=== PATIENT | female | born 1945 | race Caucasian/White ===

== ENCOUNTER 2017-05-28 11:16 | Inpatient (IN) | payer MEDICARE, OTHER ==
[~2017-05-28] VITALS: Ht 175.3 cm; Wt 85.2 kg
[~2017-05-28 11:16] MED LIST: ALBU90OI INH; CLOB.05TC TOP; Duoneb 2.5-0.5 M3 ML INH; ESTR2; FLUSAL2505 INH; GLUC500 PO; LOVA40 PO; Lialda1.2 GM PO; MAGNESIUM 250 MG PO; NITR100CA PO; Omeprazole20 M1; Prednisone20 MG PO; TIOT18 INH; WARF5 PO
[2017-05-28] MEDS ORDERED: AMLO10 PO (11:54)
[2017-05-28] MEDS ORDERED: METO25ER PO (11:54)
[2017-05-28] MEDS ORDERED: VALSARTAN160 MG PO (11:54)
[2017-05-28] MEDS ORDERED: AZIT250 PO (11:55)
[2017-05-28 11:56] LABS: BASOPHILS ABSOLUTE AUTO 0.02 K/mm3 (0.00-0.23); BASOPHILS PERCENT AUTO 0 % (0-2); EOSINOPHILS ABSOLUTE AUTO 0.13 K/mm3 (0.00-0.68); EOSINOPHILS PERCENT AUTO 1 % (0-6); Hematocrit 40.6 % (33.0-51.0); Hemoglobin 13.3 g/dL (11.5-16.0); IMMATURE GRAN ABSOLUTE AUTO 0.03 K/mm3 (0.00-0.10); IMMATURE GRAN PERCENT AUTO 0 % (0-1); LYMPHOCYTES ABSOLUTE AUTO 1.58 K/mm3 (0.84-5.20); LYMPHOCYTES PERCENT AUTO 16 % (21-46); MONOCYTES ABSOLUTE AUTO 0.71 K/mm3 (0.16-1.47); MONOCYTES PERCENT AUTO 7 % (4-13); Mean Corpuscular HGB 29.8 pg (26.0-34.0); Mean Corpuscular HGB Conc 32.8 g/dL (31.5-36.5); Mean Corpuscular Volume 91 fL (80-100); Mean Platelet Volume 9.5 fL (9.1-12.4); NEUTROPHILS ABSOLUTE AUTO 7.43 K/mm3 (1.96-9.15); NEUTROPHILS PERCENT AUTO 75 % (41-73); Platelet Count 309 K/mm3 (150-400); RDW Standard Deviation 45.9 fL (35.1-46.3); Red Blood Cell Count 4.47 M/mm3 (3.80-5.20)
[2017-05-28 12:07] LABS: International Normalized Ratio 2.53; Prothrombin Time Results 27.1 Sec (9.7-11.5)
[2017-05-28 12:16] LABS: Alanine Aminotransfer (ALT/SGP 17 U/L (12-78); Albumin/Globulin Ratio 0.7 (0.8-1.8); Alk Phos 84 U/L (50-136); Anion Gap 10 mmol/L (6-16); Aspartate Aminotrans (AST/SGOT 26 U/L (12-37); Bilirubin, Total 0.5 mg/dL (0.1-1.0); Blood Urea Nitrogen 13 mg/dL (8-24); Bun/Creatinine Ratio 18.5 (12.0-20.0); CO2, Blood 25 mmol/L (21-32); Calcium, Blood 9.2 mg/dL (8.5-10.1); Chloride, Blood 103 mmol/L (98-108); Globulin, Blood 4.6 g/dL (2.2-4.0); Glomerular Filtration Rate >60 (60-); Glucose, Blood 94 mg/dL (70-99); Potassium, Blood 3.4 mmol/L (3.5-5.5); Sodium, Blood 138 mmol/L (136-145); Total Protein, Blood 7.6 g/dL (6.4-8.2)
[2017-05-28] MEDS ORDERED: TIOT18 INH (12:23)
[2017-05-28] MEDS ORDERED: Ferrous Sulfat325 M2 PO (12:24)
[2017-05-28] MEDS ORDERED: Balsalazide Di750 MG PO (12:24)
[2017-05-28 13:39] LABS: Influenza A Negative (NEGATIVE); Influenza B Negative (NEGATIVE)
[2017-05-28] MEDS ORDERED: WARF4 PO (16:56)
[2017-05-29 06:01] LABS: BASOPHILS PERCENT AUTO 0 % (0-2); EOSINOPHILS PERCENT AUTO 0 % (0-6); Hematocrit 37.6 % (33.0-51.0); Hemoglobin 12.2 g/dL (11.5-16.0); IMMATURE GRAN ABSOLUTE AUTO 0.02 K/mm3 (0.00-0.10); IMMATURE GRAN PERCENT AUTO 0 % (0-1); LYMPHOCYTES ABSOLUTE AUTO 0.54 K/mm3 (0.84-5.20); LYMPHOCYTES PERCENT AUTO 7 % (21-46); MONOCYTES ABSOLUTE AUTO 0.07 K/mm3 (0.16-1.47); MONOCYTES PERCENT AUTO 1 % (4-13); Mean Corpuscular HGB 29.7 pg (26.0-34.0); Mean Corpuscular HGB Conc 32.4 g/dL (31.5-36.5); Mean Corpuscular Volume 92 fL (80-100); Mean Platelet Volume 10.1 fL (9.1-12.4); NEUTROPHILS ABSOLUTE AUTO 6.95 K/mm3 (1.96-9.15); NEUTROPHILS PERCENT AUTO 92 % (41-73); Platelet Count 297 K/mm3 (150-400); RDW Coefficient Variation 13.8 % (11.7-14.2); Red Blood Cell Count 4.11 M/mm3 (3.80-5.20); White Blood Cell Count 7.58 K/mm3 (4.00-11.30)
[2017-05-29 06:18] LABS: International Normalized Ratio 3.57; Prothrombin Time Results 38.6 Sec (9.7-11.5)
[2017-05-29 06:32] LABS: Alanine Aminotransfer (ALT/SGP 15 U/L (12-78); Albumin, Blood 2.7 g/dL (3.4-5.0); Albumin/Globulin Ratio 0.6 (0.8-1.8); Alk Phos 79 U/L (50-136); Anion Gap 8 mmol/L (6-16); Aspartate Aminotrans (AST/SGOT 21 U/L (12-37); Bilirubin, Total 0.3 mg/dL (0.1-1.0); Blood Urea Nitrogen 11 mg/dL (8-24); Bun/Creatinine Ratio 18.3 (12.0-20.0); CO2, Blood 26 mmol/L (21-32); Calcium, Blood 8.9 mg/dL (8.5-10.1); Chloride, Blood 103 mmol/L (98-108); Globulin, Blood 4.2 g/dL (2.2-4.0); Glomerular Filtration Rate >60 (60-); Glucose, Blood 192 mg/dL (70-99); Sodium, Blood 137 mmol/L (136-145); Total Protein, Blood 6.9 g/dL (6.4-8.2)
[2017-05-30 05:27] LABS: International Normalized Ratio 3.6; Prothrombin Time Results 38.9 Sec (9.7-11.5)
[2017-05-31 05:17] LABS: International Normalized Ratio 3.41; Prothrombin Time Results 36.8 Sec (9.7-11.5)
[2017-05-31 10:42] LABS: BASOPHILS ABSOLUTE AUTO 0.01 K/mm3 (0.00-0.23); BASOPHILS PERCENT AUTO 0 % (0-2); EOSINOPHILS PERCENT AUTO 0 % (0-6); Hematocrit 38.6 % (33.0-51.0); Hemoglobin 12.7 g/dL (11.5-16.0); IMMATURE GRAN PERCENT AUTO 3 % (0-1); LYMPHOCYTES ABSOLUTE AUTO 0.97 K/mm3 (0.84-5.20); LYMPHOCYTES PERCENT AUTO 8 % (21-46); MONOCYTES ABSOLUTE AUTO 0.33 K/mm3 (0.16-1.47); MONOCYTES PERCENT AUTO 3 % (4-13); Mean Corpuscular HGB 29.9 pg (26.0-34.0); Mean Corpuscular HGB Conc 32.9 g/dL (31.5-36.5); Mean Corpuscular Volume 91 fL (80-100); Mean Platelet Volume 9.7 fL (9.1-12.4); NEUTROPHILS ABSOLUTE AUTO 10.24 K/mm3 (1.96-9.15); NEUTROPHILS PERCENT AUTO 86 % (41-73); Platelet Count 365 K/mm3 (150-400); RDW Coefficient Variation 13.6 % (11.7-14.2); RDW Standard Deviation 44.9 fL (35.1-46.3); Red Blood Cell Count 4.25 M/mm3 (3.80-5.20); White Blood Cell Count 11.95 K/mm3 (4.00-11.30)
[2017-05-31 11:06] LABS: Anion Gap 9 mmol/L (6-16); Blood Urea Nitrogen 17 mg/dL (8-24); Bun/Creatinine Ratio 29.3 (12.0-20.0); CO2, Blood 27 mmol/L (21-32); Calcium, Blood 8.3 mg/dL (8.5-10.1); Chloride, Blood 104 mmol/L (98-108); Creatinine, Blood 0.58 mg/dL (0.40-1.00); Glomerular Filtration Rate >60 (60-); Glucose, Blood 207 mg/dL (70-99); Potassium, Blood 3.7 mmol/L (3.5-5.5); Sodium, Blood 140 mmol/L (136-145)
[2017-06-01 05:36] LABS: International Normalized Ratio 2.65; Prothrombin Time Results 28.4 Sec (9.7-11.5)
[2017-06-02 05:36] LABS: International Normalized Ratio 1.91; Prothrombin Time Results 20.3 Sec (9.7-11.5)
[2017-06-02] MEDS ORDERED: WARF4 PO (14:42)
[2017-06-02] MEDS ORDERED: LEVFLO500 PO (14:43)
[2017-06-02] MEDS ORDERED: PRED10 (14:47)
== END 2017-06-02 15:58 | disposition home or self-care (01) | DRG 189 ==
LOC: ER 11:16 → MEDS 15:36 → ENPENDDIS 06-02 12:00 → MEDS 06-02 15:58
PROVIDERS: Emergency Medicine; Family Medicine; Internal Medicine; Pharmacist; Physician Assistant
DX: J96.01 Acute respiratory failure with hypoxia (principal); J18.9 Pneumonia, unspecified organism; I48.91 Unspecified atrial fibrillation; K50.90 Crohn's disease, unspecified, without complications; J44.0 Chronic obstructive pulmonary disease with (acute) lower respiratory infection; J44.1 Chronic obstructive pulmonary disease with (acute) exacerbation; I10 Essential (primary) hypertension; E78.5 Hyperlipidemia, unspecified; Z86.711 Personal history of pulmonary embolism; Z88.8 Allergy status to other drugs, medicaments and biological substances; Z79.01 Long term (current) use of anticoagulants; Z79.51 Long term (current) use of inhaled steroids; Z79.899 Other long term (current) drug therapy; Z87.891 Personal history of nicotine dependence
CPT/HCPCS: 36415; 36416; 71046; 80048; 80053; 83605; 85025; 85610; 87040; 87804; 93005; 93010; 94640; 94667; 94760; 96365; 96375; 99285; J1956; J2930; J7050

== ENCOUNTER 2022-05-25 05:42 | Inpatient (IN) | payer MEDICARE, OTHER ==
[~2022-05-25] VITALS: Ht 172.7 cm; Wt 74.6 kg
[~2022-05-25 05:42] MED LIST changes: +AMLO10 PO; +AZIT250 PO; +Balsalazide Di750 MG PO; -CLOB.05TC TOP; +CLOBETASOL EMOL15 G1 TOP; -ESTR2; -FLUSAL2505 INH; +FLUT1DIS5 INH; +Ferrous Sulfat325 M2 PO; +LEVFLO500 PO; +METO25ER PO; +PRED10; +Prednisone50 MG PO; +VALSARTAN160 MG PO; +WARF4 PO
[2022-05-25 07:59] LABS: Hematocrit 40.7 % (33.0-51.0); Mean Corpuscular HGB 33.3 pg (26.0-34.0); Mean Corpuscular HGB Conc 34.4 g/dL (31.5-36.5); Mean Corpuscular Volume 97 fL (80-100); Mean Platelet Volume 9.3 fL (9.1-12.4); Platelet Count 238 K/mm3 (150-400); RDW Coefficient Variation 12.5 % (11.7-14.2); RDW Standard Deviation 44.8 fL (35.1-46.3); Red Blood Cell Count 4.21 M/mm3 (3.80-5.20); White Blood Cell Count 5.55 K/mm3 (4.00-11.30)
[2022-05-25 08:09] LABS: Albumin, Blood 3.2 g/dL (3.4-5.0); Albumin/Globulin Ratio 0.8 (0.8-1.8); Bilirubin, Total 0.6 mg/dL (0.1-1.0); Bun/Creatinine Ratio 24.6 (12.0-20.0); Calcium, Blood 9.3 mg/dL (8.5-10.1); Creatinine, Blood 0.69 mg/dL (0.40-1.00); Potassium, Blood 3.9 mmol/L (3.5-5.5); Total Protein, Blood 7.2 g/dL (6.4-8.2)
[2022-05-25 08:35] LABS: Influenza A, PCR NEGATIVE (NEGATIVE); Influenza B, PCR NEGATIVE (NEGATIVE); Resp Syncytial Virus, PCR NEGATIVE (NEGATIVE); SARS-Cov-2 (COVID-19) PCR, MMC NEGATIVE (NEGATIVE)
[2022-05-25 08:35] LABS: BAND PERCENT MAN 41 % (0-8); BASOPHILS PERCENT MAN 0 % (0-2); EOSINOPHILS PERCENT MAN 0 % (0-6); LYMPHOCYTES ABSOLUTE MAN 0.72 K/mm3 (0.84-5.20); LYMPHOCYTES PERCENT MAN 13 % (21-46); MONOCYTES ABSOLUTE MAN 0.88 K/mm3 (0.16-1.47); MONOCYTES PERCENT MAN 16 % (4-13); NEUTROPHILS ABSOLUTE MAN 3.94 K/mm3 (1.96-9.15); SEG NEUTROPHILS PERCENT MAN 30 % (41-73); TOTAL CELLS COUNTED 100
[2022-05-25 09:30] LABS: Prothrombin Time Results 29.3 Sec (9.7-11.5)
[2022-05-25] MEDS ORDERED: HUMIRA PEN40 MG/0.2 SC (13:09)
[2022-05-25] MEDS ORDERED: LOSA50 PO (13:10)
[2022-05-25] MEDS ORDERED: OMEP20ER PO (13:10)
[2022-05-25] MEDS ORDERED: ESTR2 (13:21)
[2022-05-25] MEDS ORDERED: IPRAT-ALBUT 0.5-3 ML INH (18:10)
--- NOTE | 2022-05-25 19:15 | NUR ---
SHIFT SUMMARY PT A&OX4 AND PLEASANT. PT ARRIVED FROM ED AT 1530 AND WAS ABLE TO TRANSFER FROM [facility] TO BED WITH MINIMAL ASSISTANCE. PT SOB WITH ACTIVITY. PT DENIED PAIN OR NAUSEA. ATE A SMALL AMOUNT OF DINNER. AT BEDSIDE FOR AFTERNOON. REPORT GIVEN TO CONTENT EDITOR NURSE.
--- NOTE | 2022-05-26 04:24 | NUR ---
SHIFT SUMMARY 76 YR F ADMITTED ON 05/25/22 FOR PNEUMONIA. FULL CODE. NO ACUTE CHANGES THIS SHIFT. NO ACUTE CHANGES THIS SHIFT. PT REFUSED HER EVENING MED, COLAZOL, STATING THAT IT IS NOT THE SAME THE MED SHE TAKES AT HOME. SBA TO BSC AND GETS OUT OF BREATH WITH ANY EXERTION. SHE HAS A VERY WET SOUNDING COUGH AND HAS BEEN ENCOURAGED TO COUGH. NO C/O PAIN OR NAUSEA THIS SHIFT.
[2022-05-26 04:59] LABS: BASOPHILS ABSOLUTE AUTO 0.04 K/mm3 (0.00-0.23); BASOPHILS PERCENT AUTO 1 % (0-2); Hematocrit 35.7 % (33.0-51.0); LYMPHOCYTES PERCENT AUTO 17 % (21-46); MONOCYTES ABSOLUTE AUTO 0.82 K/mm3 (0.16-1.47); MONOCYTES PERCENT AUTO 13 % (4-13); Mean Corpuscular HGB 32.9 pg (26.0-34.0); Mean Corpuscular HGB Conc 33.6 g/dL (31.5-36.5); Mean Corpuscular Volume 98 fL (80-100); Mean Platelet Volume 9.4 fL (9.1-12.4); Platelet Count 203 K/mm3 (150-400); RDW Coefficient Variation 12.8 % (11.7-14.2); RDW Standard Deviation 46.1 fL (35.1-46.3); Red Blood Cell Count 3.65 M/mm3 (3.80-5.20); White Blood Cell Count 6.55 K/mm3 (4.00-11.30)
[2022-05-26 05:02] LABS: EOSINOPHILS ABSOLUTE AUTO 0.06 K/mm3 (0.00-0.68); EOSINOPHILS PERCENT AUTO 1 % (0-6); IMMATURE GRAN ABSOLUTE AUTO 0.08 K/mm3 (0.00-0.10); IMMATURE GRAN PERCENT AUTO 1 % (0-1); NEUTROPHILS ABSOLUTE AUTO 4.45 K/mm3 (1.96-9.15); NEUTROPHILS PERCENT AUTO 68 % (41-73)
[2022-05-26 05:13] LABS: International Normalized Ratio 3.63
[2022-05-26 05:33] LABS: Albumin, Blood 2.4 g/dL (3.4-5.0); Albumin/Globulin Ratio 0.7 (0.8-1.8); Bilirubin, Total 0.4 mg/dL (0.1-1.0); Bun/Creatinine Ratio 25.7 (12.0-20.0); Calcium, Blood 8.6 mg/dL (8.5-10.1); Creatinine, Blood 0.54 mg/dL (0.40-1.00); Globulin, Blood 3.5 g/dL (2.2-4.0); Potassium, Blood 3.5 mmol/L (3.5-5.5); Total Protein, Blood 5.9 g/dL (6.4-8.2)
--- NOTE | 2022-05-26 17:55 | NUR ---
PATIENT C/O NOT FEELING GOOD. LUNG SOUNDS WHEEZE. COUGH SOUNDS CROUPY/BARKY. IV LEVAQUIN THERAPY STARTED TODAY. TOLERATING MEDICATION. APPETITE PRESENT-STATES SHE ATE MORE AT LUNCH TODAY THAN SHE HAS IN 4 DAYS. PATIENT IS ON 3-4 LITERS HUMIDIFIED 02, SOUNDING SOB BUT SA02 WNL. HERE DURING SHIFT WATCHING FOOT BALL. TELE CALLED AND REPORTED PATIENT HAD TACKED UP FOR ABOUT 5 SECONDS. IT WAS DURING THIS TIME THAT A TOUCH DOWN WAS SCORED DURING THE FOOTBALL GAME, HOWEVER THERE WAS A REPEAT OF THE TREND LATER IN THE DAY. PATIENT IS ASYMPTOMATIC, NOT REALIZING THAT ANYTHING HAD CHANGED DURING THE EVENT LASTING ABOUT 5 SECONDS.
[2022-05-27 04:44] LABS: International Normalized Ratio 2.42
--- NOTE | 2022-05-27 05:02 | NUR ---
SHIFT SUMMARY NOC PT A/O X 4. PT PLEASANT AND COOPERATIVE TO CARE. PT ON 3.5L/NC SP02 >94%. PT ON TELE RUNNING NSR HR 83 BPM. PT HAS CROUPY/BARKING COUGH. ORDER FOR ROBITUSSIN OBTAINED WELL PRILOSEC WHICH PT TAKES AT HOME. PT STILL REPORTS POOR APPETITE BUT ATE 1 SERVING OF STRAWBERRY ICE CREAM AND TOLERATED IT WELL. PT PLEASANT AND COOPERATIVE TO CARE. PT IS CURRENTLY RESTING WITH BED RAILS UP, BED IN LOWEST POSITION, AND CALL LIGHT WITHIN REACH.
--- NOTE | 2022-05-27 08:00 | NUR ---
pt laying in bed, states she's doing ok, watching tv, reports she's been in hosp for two days, a/ox3, pleasant and cooperative with care, follows commands well, denies pain at this time, lungs are course with exp wheezing and harsh productive cough, currently on 3.5 liters o2 via n/c, resp even and unalbored at rest, hrr, tele in place running sr per monitor see strip, no edema noted, ppp+2, cap refill <3sec, vs stable, afebrile, iv site is clear and patent, bt x4, abd flat soft nontender, voids without diff, skin c/w/d, maew, matthew, call light in reach.
--- NOTE | 2022-05-27 08:38 | NUR ---
CHEST PAIN PT C/O RIGHT CHEST PAIN AND REPORTS IT HURTS TO BREATHE. VITALS TAKEN, AND WNL FOR PT'S RECENT VITALS. 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 THIS RN ASKED PT WAS SHE USUALLY DOES FOR THIS, AND PT REPORTS SHE DOES EXERCISES AND WEARS A COMPRESSION BRA. INVENTORY BRINGING A COMPRESSION BRA AND THIS RN TALKED WITH DR. BRADSHAW. ORDER FOR A CHEST XRAY. CALL LIGHT IN REACH.
--- NOTE | 2022-05-27 18:23 | NUR ---
pt has had an uneventful day, medicated with tylenol twice, no further changes this shift, spouce came in we put a breast binder on her for the lymph edema, call light in reach.
--- NOTE | 2022-05-28 04:00 | NUR ---
SHIFT MOSTLY UNREMARKABLE. PATIENT'S BP HAS BEEN RUNNING MILDLY ELEVATED THROUGHOUT SHIFT BUT PATIENT REMAINS AYMPTOMATIC OUTSIDE OF MINOR HEADACHE WHICH WAS COMPLETELY ALLEVIATED VIA TYLENOL. CALL LIGHT LEFT WITHIN REACH.
[2022-05-28 04:33] LABS: BASOPHILS ABSOLUTE AUTO 0.03 K/mm3 (0.00-0.23); BASOPHILS PERCENT AUTO 0 % (0-2); EOSINOPHILS ABSOLUTE AUTO 0.02 K/mm3 (0.00-0.68); EOSINOPHILS PERCENT AUTO 0 % (0-6); Hematocrit 35.9 % (33.0-51.0); Hemoglobin 12.2 g/dL (11.5-16.0); IMMATURE GRAN ABSOLUTE AUTO 0.18 K/mm3 (0.00-0.10); IMMATURE GRAN PERCENT AUTO 2 % (0-1); LYMPHOCYTES ABSOLUTE AUTO 1.49 K/mm3 (0.84-5.20); LYMPHOCYTES PERCENT AUTO 17 % (21-46); MONOCYTES ABSOLUTE AUTO 0.74 K/mm3 (0.16-1.47); MONOCYTES PERCENT AUTO 9 % (4-13); Mean Corpuscular HGB 32.8 pg (26.0-34.0); Mean Corpuscular Volume 97 fL (80-100); Mean Platelet Volume 9.2 fL (9.1-12.4); NEUTROPHILS ABSOLUTE AUTO 6.29 K/mm3 (1.96-9.15); NEUTROPHILS PERCENT AUTO 72 % (41-73); Platelet Count 236 K/mm3 (150-400); RDW Coefficient Variation 12.5 % (11.7-14.2); RDW Standard Deviation 44.9 fL (35.1-46.3); Red Blood Cell Count 3.72 M/mm3 (3.80-5.20); White Blood Cell Count 8.75 K/mm3 (4.00-11.30)
[2022-05-28 04:50] LABS: Albumin, Blood 2.5 g/dL (3.4-5.0); Albumin/Globulin Ratio 0.7 (0.8-1.8); Bilirubin, Total 0.3 mg/dL (0.1-1.0); Bun/Creatinine Ratio 20.9 (12.0-20.0); Calcium, Blood 9.1 mg/dL (8.5-10.1); Creatinine, Blood 0.62 mg/dL (0.40-1.00); Globulin, Blood 3.6 g/dL (2.2-4.0); Potassium, Blood 3.8 mmol/L (3.5-5.5); Total Protein, Blood 6.1 g/dL (6.4-8.2)
[2022-05-28 04:52] LABS: International Normalized Ratio 1.91; Prothrombin Time Results 19.2 Sec (9.7-11.5)
--- NOTE | 2022-05-28 17:45 | NUR ---
SHIFT SUMMARY- VSS. NO ACUTE CHANGES THIS SHIFT. IV D/C'D LEAKING, NEW IV PLACED. APPETITE GOOD. A&OX4. FAMILY AT BEDSIDE. NO C/O PAIN. INDEPENDANT IN ROOM. O2 3L VIA NC. WILL CONTINUE TO MONITOR. SIDE RAILS UP, CALL LIGHT IN REACH.
--- NOTE | 2022-05-29 04:03 | NUR ---
SHIFT UNREMARKABLE. PATIENT DENIES PAIN OR DISCOMFORT BUT HAS HAD HARSH COUGH THROUGHOUT MOST OF SHIFT. PRN ROBITUSSIN ADMINISTERED EARLY IN SHIFT WHICH SEEMED TO HELP BUT NOT TOTALLY ALLEVIATE COUGH. SHIFT OTHERWISE UNREMARKABLE.
[2022-05-29 04:45] LABS: BASOPHILS ABSOLUTE AUTO 0.03 K/mm3 (0.00-0.23); BASOPHILS PERCENT AUTO 0 % (0-2); EOSINOPHILS ABSOLUTE AUTO 0.06 K/mm3 (0.00-0.68); EOSINOPHILS PERCENT AUTO 1 % (0-6); Hematocrit 36.8 % (33.0-51.0); Hemoglobin 12.5 g/dL (11.5-16.0); IMMATURE GRAN ABSOLUTE AUTO 0.32 K/mm3 (0.00-0.10); IMMATURE GRAN PERCENT AUTO 3 % (0-1); LYMPHOCYTES PERCENT AUTO 17 % (21-46); MONOCYTES ABSOLUTE AUTO 0.99 K/mm3 (0.16-1.47); MONOCYTES PERCENT AUTO 9 % (4-13); Mean Corpuscular HGB 32.6 pg (26.0-34.0); Mean Corpuscular Volume 96 fL (80-100); Mean Platelet Volume 9.2 fL (9.1-12.4); NEUTROPHILS ABSOLUTE AUTO 7.69 K/mm3 (1.96-9.15); NEUTROPHILS PERCENT AUTO 71 % (41-73); Platelet Count 248 K/mm3 (150-400); RDW Standard Deviation 45.9 fL (35.1-46.3); Red Blood Cell Count 3.83 M/mm3 (3.80-5.20); White Blood Cell Count 10.89 K/mm3 (4.00-11.30)
[2022-05-29 05:01] LABS: International Normalized Ratio 1.8; Prothrombin Time Results 18.2 Sec (9.7-11.5)
[2022-05-29 05:05] LABS: Albumin, Blood 2.6 g/dL (3.4-5.0); Albumin/Globulin Ratio 0.7 (0.8-1.8); Bilirubin, Total 0.4 mg/dL (0.1-1.0); Bun/Creatinine Ratio 24.3 (12.0-20.0); Calcium, Blood 8.8 mg/dL (8.5-10.1); Creatinine, Blood 0.53 mg/dL (0.40-1.00); Globulin, Blood 3.5 g/dL (2.2-4.0); Potassium, Blood 3.5 mmol/L (3.5-5.5); Total Protein, Blood 6.1 g/dL (6.4-8.2)
--- NOTE | 2022-05-29 19:18 | NUR ---
SHIFT SUMMARY PTN PLEASANT AND COOPERATIVE, TEARFUL ABOUT WANTING TO GO HOME. DR BRADSHAW TOLD HER HE WOULD REASSESS TOMORROW, THAT HE DID NOT WANT TO SEND HER HOME TO EARLY. SHE SAID SHE UNDERSTOOD. PRESENT MUCH OF DAY. PTN UP TO BATHROOM AND MOVING MORE TODAY THAN SHE HAD BEEN. SEEN BY BOTH PT AND OT. 4L VIA ND. CONTINUE TO MONITOR.
[2022-05-30 05:31] LABS: BASOPHILS ABSOLUTE AUTO 0.03 K/mm3 (0.00-0.23); BASOPHILS PERCENT AUTO 0 % (0-2); EOSINOPHILS ABSOLUTE AUTO 0.11 K/mm3 (0.00-0.68); EOSINOPHILS PERCENT AUTO 1 % (0-6); Hematocrit 36.7 % (33.0-51.0); Hemoglobin 12.5 g/dL (11.5-16.0); IMMATURE GRAN ABSOLUTE AUTO 0.37 K/mm3 (0.00-0.10); IMMATURE GRAN PERCENT AUTO 4 % (0-1); LYMPHOCYTES ABSOLUTE AUTO 1.89 K/mm3 (0.84-5.20); LYMPHOCYTES PERCENT AUTO 19 % (21-46); MONOCYTES ABSOLUTE AUTO 0.82 K/mm3 (0.16-1.47); MONOCYTES PERCENT AUTO 8 % (4-13); Mean Corpuscular HGB 32.8 pg (26.0-34.0); Mean Corpuscular HGB Conc 34.1 g/dL (31.5-36.5); Mean Corpuscular Volume 96 fL (80-100); Mean Platelet Volume 9.3 fL (9.1-12.4); NEUTROPHILS ABSOLUTE AUTO 6.79 K/mm3 (1.96-9.15); NEUTROPHILS PERCENT AUTO 68 % (41-73); Platelet Count 246 K/mm3 (150-400); RDW Standard Deviation 46.1 fL (35.1-46.3); Red Blood Cell Count 3.81 M/mm3 (3.80-5.20); White Blood Cell Count 10.01 K/mm3 (4.00-11.30)
--- NOTE | 2022-05-30 05:34 | NUR ---
SHIFT SUMMARY NOC PT A/O X 4. PT ON TELE RUNNING NSR HR @ 87 BPM. PT ON 4L/NC O2 SPO2 >92%. PT LUNGS SOUND LIKE CONGESTION IS STARTING TO CLEAR. PT ABLE TO EXPEL MUCUS. PT HAD C/O SOB WHEN AMBULATING AND RT CALLED AND PT GIVEN BREATHING TX WHICH RELIEVED IT. PT HAD C/O MALIN AND MEDICATED PER EMAR. NO ACUTE CHANGES TO REPORT. PT IS CURRENTLY RESTING WITH BED RAILS UP, BED IN LOWEST POSITION, AND CALL LIGHT WITHIN REACH.
[2022-05-30 05:43] LABS: International Normalized Ratio 1.83; Prothrombin Time Results 18.5 Sec (9.7-11.5)
[2022-05-30 06:05] LABS: Albumin, Blood 2.5 g/dL (3.4-5.0); Albumin/Globulin Ratio 0.7 (0.8-1.8); Bilirubin, Total 0.4 mg/dL (0.1-1.0); Bun/Creatinine Ratio 27.7 (12.0-20.0); Calcium, Blood 8.9 mg/dL (8.5-10.1); Creatinine, Blood 0.54 mg/dL (0.40-1.00); Globulin, Blood 3.5 g/dL (2.2-4.0); Potassium, Blood 3.5 mmol/L (3.5-5.5)
[2022-05-30] MEDS ORDERED: BALSALAZIDE DI750 M1 PO (13:53)
[2022-05-30] MEDS ORDERED: ACET325 PO (13:54)
[2022-05-30] MEDS ORDERED: Q-Tussin100 MG/5 M PO (13:55)
[2022-05-30] MEDS ORDERED: FERSU300 PO (13:55)
[2022-05-30] MEDS ORDERED: TEMA15 PO (13:56)
[2022-05-30] MEDS ORDERED: LEVO750 PO (13:56)
--- NOTE | 2022-05-30 18:22 | NUR ---
WRITTEN PRESCRIPTION WRITTEN PRESCRIPTION HARD COPY FOR TENAZEPAM, WRITTEN BY DR BRADSHAW, WAS GIVEN TO PTN TO TAKE TO PHARMACY THIS EVENING.
--- NOTE | 2022-05-30 18:25 | NUR ---
SHIFT SUMMARY PTN SEEN BY DR BRADSHAW TODAY. AFTER RESPIRATORY THERAPY HOME O2 EVAL, IT WAS DECIDED FOR PTN TO REMAIN ANOTHER NIGHT. PTN IS ON 4L AT REST, BUT DESAT WITH AMBULATION. COUGH SOUNDS MORE PRODUCTIVE, AND CRACKLES HEARD L LUNG UPPER AND LOWER LOBES, R SOUNDED LESS CONGESTED. PTN INDEPENDENT, BUT 1-PERSON ASSIST RECOMMENDED, WALKER WITH AMBULATION. CONTINUE TO MONITOR.
--- NOTE | 2022-05-31 04:46 | NUR ---
SHIFT SUMMARY NOC PT A/OX4. PT HAS HAD ELEVATED HR IN CONJUNCTION WITH INCREASED SOB UPON EXERTION. PT HAS LOOSE MUCUS IN UPPER LOBES BUT IS UNABLE TO COUGH UP SPUTUM. RT IS PUTTING IN ORDER FOR CPT TO HELP PT COUGH UP SECRETIONS. PT IS ON 5L/NC SPO2 >92%. PT IS ON TELE RUNNING SR @ 99 BPM. PT WAS SUPPOSED TO D/C 05/30/22 BUT DID NOT PASS RT EVALUATION. PT HAS D/C PACKAGE READY PENDING SOB IMPROVEMENT AND ABILITY TO EXPECTORATE SECRETIOINS. PT IS CURRENTLY RESTING WITH BED RAILS UP, BED IN LOWEST POSITION, AND CALL LIGHT WITHIN REACH.
[2022-05-31 04:51] LABS: BASOPHILS ABSOLUTE AUTO 0.05 K/mm3 (0.00-0.23); BASOPHILS PERCENT AUTO 1 % (0-2); EOSINOPHILS ABSOLUTE AUTO 0.17 K/mm3 (0.00-0.68); EOSINOPHILS PERCENT AUTO 2 % (0-6); Hematocrit 41.8 % (33.0-51.0); Hemoglobin 13.8 g/dL (11.5-16.0); IMMATURE GRAN ABSOLUTE AUTO 0.35 K/mm3 (0.00-0.10); IMMATURE GRAN PERCENT AUTO 4 % (0-1); LYMPHOCYTES ABSOLUTE AUTO 1.26 K/mm3 (0.84-5.20); LYMPHOCYTES PERCENT AUTO 13 % (21-46); MONOCYTES ABSOLUTE AUTO 0.79 K/mm3 (0.16-1.47); MONOCYTES PERCENT AUTO 8 % (4-13); Mean Corpuscular HGB 32.1 pg (26.0-34.0); Mean Corpuscular Volume 97 fL (80-100); NEUTROPHILS ABSOLUTE AUTO 6.85 K/mm3 (1.96-9.15); NEUTROPHILS PERCENT AUTO 72 % (41-73); Platelet Count 243 K/mm3 (150-400); RDW Coefficient Variation 13.3 % (11.7-14.2); RDW Standard Deviation 47.9 fL (35.1-46.3); White Blood Cell Count 9.47 K/mm3 (4.00-11.30)
[2022-05-31 05:11] LABS: International Normalized Ratio 1.65; Prothrombin Time Results 16.8 Sec (9.7-11.5)
[2022-05-31 05:24] LABS: Albumin, Blood 2.4 g/dL (3.4-5.0); Albumin/Globulin Ratio 0.6 (0.8-1.8); Bilirubin, Total 0.6 mg/dL (0.1-1.0); Bun/Creatinine Ratio 22.6 (12.0-20.0); Calcium, Blood 8.8 mg/dL (8.5-10.1); Creatinine, Blood 0.66 mg/dL (0.40-1.00); Globulin, Blood 3.7 g/dL (2.2-4.0); Potassium, Blood 3.8 mmol/L (3.5-5.5); Total Protein, Blood 6.1 g/dL (6.4-8.2)
--- NOTE | 2022-05-31 19:46 | NUR ---
SHIFT SUMMARY: PT A&O X4, PLEASANT AND COPPERATIVE. PT ANXIOUS AND REQUESTING TO LEAVE AMA, DR. CELESTE COMMUNICATED WITH PT THE RISK AND BENEFITS OF LEAVING AMA. PT DECIDED TO NOT LEAVE AMA. PT TIRATED FROM 5L TO 3L NC WITH O92 STATS STABLE 91-92%. PT LATER HYPOXIC REQUIRING 7L NC AND BREATHING TREATMENT O2 STATS 88%. PT STABLE ON 7L NC OS2 STATS 92%. PT ENCOURAGED TO USE INCENTIVE SPIROMETER AND FLUTTER VALVE TO LOOSEN MUCUS. PT HAD MILD PAIN IN CHEST, RIBS AND BACK FROM COUGHING, PT MEDICATED PER EMAR PROTOCOL. PT AT BEDSIDE THROUGHOUT THE SHIFT. PT IN BED WITH CALL LIGHT WITHIN REACH.
[2022-06-01 04:56] LABS: BASOPHILS ABSOLUTE AUTO 0.04 K/mm3 (0.00-0.23); BASOPHILS PERCENT AUTO 1 % (0-2); EOSINOPHILS ABSOLUTE AUTO 0.17 K/mm3 (0.00-0.68); EOSINOPHILS PERCENT AUTO 2 % (0-6); Hematocrit 39.3 % (33.0-51.0); Hemoglobin 13.3 g/dL (11.5-16.0); IMMATURE GRAN ABSOLUTE AUTO 0.18 K/mm3 (0.00-0.10); IMMATURE GRAN PERCENT AUTO 2 % (0-1); LYMPHOCYTES ABSOLUTE AUTO 1.16 K/mm3 (0.84-5.20); LYMPHOCYTES PERCENT AUTO 14 % (21-46); MONOCYTES PERCENT AUTO 10 % (4-13); Mean Corpuscular HGB 32.6 pg (26.0-34.0); Mean Corpuscular HGB Conc 33.8 g/dL (31.5-36.5); Mean Corpuscular Volume 96 fL (80-100); NEUTROPHILS ABSOLUTE AUTO 5.98 K/mm3 (1.96-9.15); NEUTROPHILS PERCENT AUTO 72 % (41-73); Platelet Count 244 K/mm3 (150-400); RDW Coefficient Variation 13.2 % (11.7-14.2); RDW Standard Deviation 47.1 fL (35.1-46.3); Red Blood Cell Count 4.08 M/mm3 (3.80-5.20); White Blood Cell Count 8.33 K/mm3 (4.00-11.30)
[2022-06-01 05:26] LABS: Albumin, Blood 2.4 g/dL (3.4-5.0); Albumin/Globulin Ratio 0.6 (0.8-1.8); Bilirubin, Total 0.6 mg/dL (0.1-1.0); Bun/Creatinine Ratio 23.1 (12.0-20.0); Calcium, Blood 8.7 mg/dL (8.5-10.1); Creatinine, Blood 0.61 mg/dL (0.40-1.00); Globulin, Blood 3.8 g/dL (2.2-4.0); Potassium, Blood 4.2 mmol/L (3.5-5.5); Total Protein, Blood 6.2 g/dL (6.4-8.2)
[2022-06-01 05:27] LABS: International Normalized Ratio 1.92; Prothrombin Time Results 19.3 Sec (9.7-11.5)
--- NOTE | 2022-06-01 06:11 | NUR ---
SOFTWARE RELIABILITY ENGINEER SUMMARY: A&Ox4. PLEASANT AND COOPERATIVE WITH CARE. CALLS APPROPRIATELY AND IS ABLE TO COMMUNICATE NEEDS EFFECTIVELY. VOIDING AND STOOLING WITHOUT DIFFICULTY. INDEPENDENT WITH AMBULATION WITHIN ROOM. 02 6L/min VIA NC. POSITIONAL AND LABORED BREATHING WITH EXERTION AND AMBULATION WITH SLOW RECOVERY. RT ADMINISTERING ROUTINE NEBULIZER Tx. CONTINUES TO HAVE COUGHING FITS; PRN ROBITUSSIN GIVEN AND PT ABLE TO OBTAIN BETTER SLEEP. HAD THREATENED TO LEAVE AMA TODAY BUT CONVINCED HER TO STAY. LUNGS CONTINUE TO BE COARSE WITH CRACKLES T / O. ANTICIPATE DC HOME TODAY OR TOMORROW. LABS DONE THIS AM WITHOUT RETURN OF CRITICAL VALUES. WILL REPORT TO ONCOMING RN.
--- NOTE | 2022-06-01 17:59 | NUR ---
DISCHARGE SUMMARY: PT DISCHARGED HOME ON OXYGEN AT 2 LPM VIA NC. ASSISTED PT WITH CHANGING CLOTHES AND PACKING BELONGINGS. PT SWITCHED TO [facility] PORTABLE O2. PT EDUCATED ON DISCHARGE PLAN AND MEDICATIONS. SPOUSE PICKED UP ALBUTEROL NEBULIZER MEDICATION CALLED INTO [facility]. PT DISCHARGED TO POV VIA WC BY PIERO.
== END 2022-06-01 18:06 | disposition home health service (06) | DRG 871 ==
LOC: ER 05:42 → MEDS 11:55 → ENPENDDIS 05-30 16:26 → MEDS 06-01 18:06
PROVIDERS: Emergency Medicine; Family Medicine; Pharmacist Pharmacotherapy; ADMIT Family Medicine
DX: A41.9 Sepsis, unspecified organism (principal); J12.9 Viral pneumonia, unspecified; J96.01 Acute respiratory failure with hypoxia; K50.90 Crohn's disease, unspecified, without complications; J93.83 Other pneumothorax; I24.8 Other forms of acute ischemic heart disease; J44.1 Chronic obstructive pulmonary disease with (acute) exacerbation; J44.0 Chronic obstructive pulmonary disease with (acute) lower respiratory infection; E87.20 Acidosis, unspecified; I10 Essential (primary) hypertension; Z86.711 Personal history of pulmonary embolism; Z20.822 Contact with and (suspected) exposure to COVID-19; Z85.3 Personal history of malignant neoplasm of breast; Z79.01 Long term (current) use of anticoagulants; K21.9 Gastro-esophageal reflux disease without esophagitis; G47.33 Obstructive sleep apnea (adult) (pediatric); R79.1 Abnormal coagulation profile; I95.9 Hypotension, unspecified
CPT/HCPCS: 0241U; 36415; 71045; 71046; 71260; 80053; 83605; 83735; 83880; 84484; 85025; 85610; 85730; 87040; 93005; 93010; 94640; 94644; 94664; 94760; 94761; 96365-59; 97110; 97162; 97165; 97530; 97535; 99285-25; A9270; J1956; J7030; J7050; J7512; Q9967

== ENCOUNTER → 2023-01-06 | Outpatient (CLI) | payer MEDICARE, OTHER ==
[~2023-01-06] MED LIST changes: +ACET325 PO; +BALSALAZIDE DI750 M1 PO; +ESTR2; +FERSU300 PO; +HUMIRA PEN40 MG/0.2 SC; +IPRAT-ALBUT 0.5-3 ML INH; +LEVO750 PO; +LOSA50 PO; +OMEP20ER PO; +Q-Tussin100 MG/5 M PO; +TEMA15 PO
[2023-01-08 14:09] LABS: A/G RATIO 1.4 (0.7-1.7); ALBUMIN 3.7 g/dL (2.9-4.4); ALPHA-1-GLOBULIN 0.2 g/dL (0.0-0.4); ALPHA-2-GLOBULIN 0.5 g/dL (0.4-1.0); GLOBULIN, TOTAL 2.6 g/dL (2.2-3.9); M-SPIKE Not Observed g/dL (Not Observed); PROTEIN, TOTAL, SERUM 6.3 g/dL (6.0-8.5)
== END | disposition home or self-care (01) ==
LOC: LAB SHORT 12:48 → LAB 12:48
PROVIDERS: Family Medicine
DX: I87.2 Venous insufficiency (chronic) (peripheral) (principal); G63 Polyneuropathy in diseases classified elsewhere; Z79.899 Other long term (current) drug therapy
CPT/HCPCS: 82607; 82746; 84165

== ENCOUNTER → 2025-02-17 | Outpatient (CLI) | payer MEDICARE ==
[2025-02-20 15:13] LABS: CALPROTECTIN,FECAL 104 ug/g (<=49)
== END ==
LOC: LAB 08:10 → LAB SHORT 08:10
PROVIDERS: Internal Medicine
DX: K50.80 Crohn's disease of both small and large intestine without complications (principal)
CPT/HCPCS: 83993